=== PATIENT | female | born 1955 | race American Indian/Alaskan Native ===

== ENCOUNTER 2020-08-03 13:47 | Emergency (ER) | payer MEDICARE ==
[2020-08-03 14:04] VITALS: BP 153/90
[2020-08-03] MEDS ORDERED: KETOROLAC 60 MG/2 ML INJ IM ONE (16:16)
[2020-08-03] MEDS ORDERED: dexAMETHasone 4 MG/ML VIAL IM ONE (16:17)
--- NOTE | 2020-08-03 16:32 | Emergency Department Report ---
ED General Adult HPI - General Chief complaint: Extremity Problem,Nontraumatic Stated complaint: RIGHT ARM PAIN Time Seen by Provider: 08/03/20 15:59 Source: patient Mode of arrival: Ambulatory Limitations: No Limitations - History of Present Illness Initial comments: Patient is a 65-year-old female presents emergency room with complaints of right-sided neck pain and right-sided shoulder pain that radiates down her right arm that began 3 days ago. She states that she has a tingling sensation in her right arm. She states that she had similar symptoms a month ago and went to her primary care physician and was diagnosed with a "pinched nerve" and prescribed oxycodone and muscle relaxer. She states that she completed the medications. She states that she has another appointment with her primary care doctor in a week due to having the symptoms again. She denies any fall or injury. She denies any headache, vision changes, weakness, complete numbness, nausea, vomiting, diarrhea, chest pain, shortness of breath, arm swelling. Has a past medical history of hypertension. No allergies to medications. - Related Data Previous Rx's Medication Instructions Recorded Last Taken Type Meloxicam [Mobic] 15 mg PO DAILY PRN #14 tablet 08/03/20 Unknown Rx Menthol/Camphor [[place] 1 applic TP BID #8 oint...g. 08/03/20 Unknown Rx Ointment] traMADoL [Ultram 50 MG tab] 50 mg PO Q8HR PRN #10 tablet 08/03/20 Unknown Rx Allergies Allergy/AdvReac Type Severity Reaction Status Date / Time No Known Allergies Allergy Unverified 08/03/20 14:02 ED Review of Systems ROS: Stated complaint: RIGHT ARM PAIN Other details as noted in HPI Comment: All other systems reviewed and negative ED Past Medical Hx - Past Medical History Previous Medical History?: No - Surgical History Past Surgical History?: Yes Hx Cholecystectomy: Yes Additional Surgical History: Hep C - Medications Home Medications: Home Medications Medication Instructions Recorded Confirmed Last Taken Type Meloxicam [Mobic] 15 mg PO DAILY PRN #14 tablet 08/03/20 Unknown Rx Menthol/Camphor [[place] 1 applic TP BID #8 oint...g. 08/03/20 Unknown Rx Ointment] traMADoL [Ultram 50 MG tab] 50 mg PO Q8HR PRN #10 tablet 08/03/20 Unknown Rx ED Physical Exam - General Limitations: No Limitations General appearance: alert, in no apparent distress - Head Head exam: Present: atraumatic, normocephalic - Eye Eye exam: Present: normal appearance - ENT ENT exam: Present: mucous membranes moist - Neck Neck exam: Present: normal inspection, full ROM. Absent: tenderness - Respiratory Respiratory exam: Present: normal lung sounds bilaterally. Absent: respiratory distress, wheezes, rales, rhonchi, stridor, chest wall tenderness, accessory muscle use, decreased breath sounds, prolonged expiratory - Cardiovascular Cardiovascular Exam: Present: regular rate, normal rhythm, normal heart sounds. Absent: systolic murmur, diastolic murmur, rubs, gallop - Extremities Exam Extremities exam: Present: other (right sided trapezius ttp, no bony ttp of the RUE, no edema of the RUE, no increased warmth, no erythema, FROM of the RUE with mild discomfort upon full flexion, neurovascularly intact, 2+ distal pulses) - Back Exam Back exam: Present: normal inspection, full ROM. Absent: paraspinal tenderness, vertebral tenderness - Neurological Exam Neurological exam: Present: alert, oriented X3, CN II-XII intact, normal gait. Absent: motor sensory deficit - Psychiatric Psychiatric exam: Present: normal affect, normal mood - Skin Skin exam: Present: warm, dry, intact ED Course Vital Signs 08/03/20 08/03/20 14:02 16:49 Temperature 98.3 F Pulse Rate 88 Respiratory 14 18 Rate Blood Pressure 153/90 O2 Sat by Pulse 98 Oximetry ED Medical Decision Making - Medical Decision Making Patient is a 65-year-old female presents emergency room with complaints of right-sided neck pain and right-sided shoulder pain that radiates down her right arm that began 3 days ago. She states that she has a tingling sensation in her right arm. She states that she had similar symptoms a month ago and went to her primary care physician and was diagnosed with a "pinched nerve" and prescribed oxycodone and muscle relaxer. She states that she completed the medications. She states that she has another appointment with her primary care doctor in a week due to having the symptoms again. She denies any fall or injury. She denies any headache, vision changes, weakness, complete numbness, nausea, vomiting, diarrhea, chest pain, shortness of breath, arm swelling. Has a past medical history of hypertension. No allergies to medications. VSS. on exam: right sided trapezius ttp, no bony ttp of the RUE, no edema of the RUE, no increased warmth, no erythema, FROM of the RUE with mild discomfort upon full flexion, neurovascularly intact, 2+ distal pulses, no midline spinal or paraspinal C-spine, T-spine, L-spine tenderness palpation, no focal neuro deficits. Symptoms could be related to radiculopathy versus muscle strain. no clinical signs of DVT, septic joint, or arterial occlusion at this time. Patient given Toradol, dexamethasone, Robaxin while in the emergency department as she states she did not drive and symptoms improved. Patient be referred to primary care physician and orthopedic/spine. Patient given prescription for Mobic, tramadol, tiger balm ointment. Advised patient Please use medication as prescribed. Do not drive or operate machinery while taking pain medication due to potential for drowsiness. may use ice pack, heating pad, rest, and epsom salt bath. Follow-up with a primary care doctor. Follow-up with orthopedic/spine doctor. Return to emergency room for any new or worsening symptoms. - Differential Diagnosis Cervical radiculopathy, muscle strain, neuropathy, tendinitis,herniated dis Critical care attestation.: If time is entered above; I have spent that time in minutes in the direct care of this critically ill patient, excluding procedure time. ED Disposition Clinical Impression: Neck pain on right side, Paresthesia Right shoulder pain Qualifiers: Chronicity: acute Qualified Code(s): M25.511 - Pain in right shoulder Disposition: DC-01 TO HOME OR SELFCARE Is pt being admited?: No Does the pt Need Aspirin: No Condition: Stable Instructions: Muscle Strain (ED), Cervical Radiculopathy (ED) Additional Instructions: Please use medication as prescribed. Do not drive or operate machinery while taking pain medication due to potential for drowsiness. may use ice pack, heating pad, rest, and epsom salt bath. Follow-up with a primary care doctor. Follow-up with orthopedic/spine doctor. Return to emergency room for any new or worsening symptoms. Prescriptions: Meloxicam [Mobic] 15 mg PO DAILY PRN #14 tablet PRN Reason: pain Menthol/Camphor [[place] Ointment] 1 applic TP BID #8 oint...g. traMADoL [Ultram 50 MG tab] 50 mg PO Q8HR PRN #10 tablet PRN Reason: Pain , Severe (7-10) Referrals: your, primary care doctor [Other] - 2-3 Days [facility] [Provider Group] - 2-3 Days LETHA BARBER II, MD [Staff Physician] - 2-3 Days Time of Disposition: 16:32 Print Language: PALEST[place]IAN
== END 2020-08-03 17:21 | disposition home or self-care (01) ==
LOC: ED 13:47
DX: M54.2 Cervicalgia (principal); M25.511 Pain in right shoulder; R20.2 Paresthesia of skin; Z90.49 Acquired absence of other specified parts of digestive tract
CPT/HCPCS: 96372; 99282; J1100; J1885